=== PATIENT | female | born 1995 | race Caucasian/White ===

== ENCOUNTER 2017-02-17 23:00 | Emergency (ER) | payer OTHER ==
[~2017-02-17] VITALS: Ht 165.1 cm; Wt 76.0 kg
[2017-02-17 23:06] VITALS: BP 109/70; PULSE 91; RESP 16; TEMP 98.1; O2SAT 100
--- NOTE | 2017-02-17 23:36 | PD ---
HPI Chief Complaint: pelvic pain, low back pain Time Seen by Provider: 23:15 Travel History International Travel<30 days: No Contact w/Intl Traveler<30days: No Traveled to known affect area: No History of Present Illness HPI The patient is a 21-year-old female, G0 who complains of bilateral pelvic pain for 3 days. She states she has a foul-smelling discharge. She denies any fever but does have some nausea. She states she has not missed her menstrual period. She denies any vomiting or diarrhea. She also complains of low back pain for 7 days. She states for several months she has had back pain up and down the back but the low back is only been hurting for 3 days. She denies any numbness, weakness or radiation of pain. She denies any bladder or bowel dysfunction. [facility] Social History Tobacco Use: No Allergies-Medications (Allergen,Severity, Reaction): Coded Allergies: No Known Allergies (Unverified , 02/17/17) Reported Meds & Prescriptions Reported Meds & Active Scripts Active Flexeril (Cyclobenzaprine HCl) 10 Mg Tab 10 Mg PO TID Ibuprofen 600 Mg Tab 600 Mg PO TID Phenergan (Promethazine HCl) 25 Mg Tablet 25 Mg PO Q6H PRN Review of Systems Except as stated in HPI: all other systems reviewed are Neg Physical Exam Narrative GENERAL: The patient is alert, oriented 3 and slight apparent distress with her low back pain and her pelvic pain. Her vital signs show heart rate of 91 but are otherwise normal. SKIN: Focused skin assessment warm/dry. HEAD: Atraumatic. Normocephalic. EYES: Pupils equal and round. No scleral icterus. No injection or drainage. ENT: No nasal bleeding or discharge. Mucous membranes pink and moist. NECK: Trachea midline. No JVD. CARDIOVASCULAR: Regular rate and rhythm. No murmur appreciated. RESPIRATORY: No accessory muscle use. Clear to auscultation. Breath sounds equal bilaterally. GASTROINTESTINAL: Abdomen soft, with minimal tenderness to direct palpation in the bilateral suprapubic area, nondistended. Hepatic and splenic margins not palpable. No guarding or rebound is present. MUSCULOSKELETAL: No obvious deformities. No clubbing. No cyanosis. No edema. There is tenderness in the lower lumbar and upper sacral area along the muscle groups bilaterally. Straight leg raising is normal and deep tendon reflexes are +1 bilaterally both patella Achilles. Pinprick is normal bilaterally. NEUROLOGICAL: Awake and alert. No obvious cranial nerve deficits. Motor grossly within normal limits. Normal speech. PSYCHIATRIC: Appropriate mood and affect; insight and judgment normal. Data Data Last Documented VS Vital Signs Date Time Temp Pulse Resp B/P Pulse Ox O2 Delivery O2 Flow Rate FiO2 02/18/17 01:04 16 02/17/17 23:50 77 117/65 98 Room Air 02/17/17 23:06 98.1 Orders Beta Hcg (Quant/Titer) (02/17/17 23:26) Complete Blood Count With Diff (02/17/17 23:26) Basic Metabolic Panel (Bmp) (02/17/17 23:26) Gc And Chlamydia Pcr (02/17/17 23:26) Wet Prep Profile (02/17/17 23:26) Urinalysis - C+S If Indicated (02/17/17 23:26) Ketorolac Inj (Toradol Inj) (02/18/17 00:00) Ceftriaxone Inj (Rocephin Inj) (02/18/17 01:30) Azithromycin Powd Pack (Zithromax Powd P (02/18/17 01:30) Labs Laboratory Tests Test 02/17/17 02/17/17 23:00 23:30 Urine Color YELLOW Urine Turbidity CLEAR Urine pH 5.5 Urine Specific [place] 1.013 Urine Protein NEG mg/dL Urine Glucose (UA) NEG mg/dL Urine Ketones NEG mg/dL Urine Occult Blood NEG Urine Nitrite NEG Urine Bilirubin NEG Urine Leukocyte Esterase TRACE Urine RBC 0-3 /hpf Urine WBC 0-2 /hpf Urine Squamous Epithelial 0-5 /hpf Cells Urine Bacteria OCC /hpf Urine Mucus OCC /lpf Microscopic Urinalysis Comment CULT NOT INDICATED White Blood Count 14.0 TH/MM3 Red Blood Count 4.02 MIL/MM3 Hemoglobin 12.6 GM/DL Hematocrit 36.7 % Mean Corpuscular Volume 91.3 FL Mean Corpuscular Hemoglobin 31.4 PG Mean Corpuscular Hemoglobin 34.4 % Concent Red Cell Distribution Width 12.9 % Platelet Count 233 TH/MM3 Mean Platelet Volume 7.6 FL Neutrophils (%) (Auto) 71.8 % Lymphocytes (%) (Auto) 16.8 % Monocytes (%) (Auto) 9.9 % Eosinophils (%) (Auto) 1.0 % Basophils (%) (Auto) 0.5 % Neutrophils # (Auto) 10.0 TH/MM3 Lymphocytes # (Auto) 2.4 TH/MM3 Monocytes # (Auto) 1.4 TH/MM3 Eosinophils # (Auto) 0.1 TH/MM3 Basophils # (Auto) 0.1 TH/MM3 CBC Comment DIFF FINAL Differential Comment Clue Cells (Wet Prep) NONE SEEN Vaginal Trichomonas (Wet Prep) NONE SEEN Vaginal Yeast (Wet Prep) NONE SEEN Sodium Level 139 MEQ/L Potassium Level 3.6 MEQ/L Chloride Level 104 MEQ/L Carbon Dioxide Level 24.2 MEQ/L Anion Gap 11 MEQ/L Blood Urea Nitrogen 9 MG/DL Creatinine 0.50 MG/DL Estimat Glomerular Filtration 156 ML/MIN Rate Random Glucose 88 MG/DL Calcium Level 8.7 MG/DL Human Chorionic Gonadotropin, 1 MIU/ML Quant MDM Medical Decision Making Medical Screen Exam Complete: Yes Emergency Medical Condition: Yes Medical Record Reviewed: Yes Interpretation(s) The CBC shows a white count of 14,000 with 72% neutrophils. The CBC is otherwise unremarkable. The basic metabolic profile is normal. The beta-hCG is 1. The urinalysis shows trace leukocyte Estrace and occasional bacteria but is otherwise normal and culture is not indicated. The wet prep is negative for clue cells, Trichomonas and yeast. Differential Diagnosis PID, bacterial vaginosis, Trichomonas vaginitis, yeast vaginitis, dehydration, electrolyte disorder, low back painacute lumbosacral strain Narrative Course The patient likely has PID. She has exquisite cervical tenderness. She also has low back painacute lumbosacral strain. Plan: The patient be given Flexeril, Motrin for the back pain and a 5 day work excuse. She will get Rocephin/Zithromax for the PID. Diagnosis Primary Impression: PID (acute pelvic inflammatory disease) Additional Impression: Acute myofascial strain of lumbosacral region Additional Instructions: As we discussed, you will get a 5 day work excuse. The Flexeril can make you sleepy so do not drink alcohol or drive on this medication. The Motrin is regularly taken, 1 tablet 3 times daily. Phenergan is for nausea and this is one every 6 hours as needed. Follow-up this week with her primary care physician. Med/Other Pt SpecificInfo: Prescription(s) given Scripts Cyclobenzaprine (Flexeril)10 Mg Tab10 Mg PO TID #30 TAB Ref 0 Prov:Dc Loyd MD 02/18/17 Ibuprofen 600 Mg [id number] Mg PO TID #44 TAB Ref 0 Prov:Dc Loyd MD 02/18/17 Promethazine (Phenergan)25 Mg [id number] Mg PO Q6H PRN (NAUSEA OR VOMITING) #30 TAB Ref 0 Prov:Dc Loyd MD 02/18/17 Disposition: 01 DISCHARGE HOME Condition: Stable Dc Loyd MD Feb 17, 2017 23:36
[2017-02-17 23:50] VITALS: BP 117/65; PULSE 77; RESP 16; O2SAT 98
[2017-02-17 23:54] LABS: BASOPHIL # 0.1 TH/MM3 (0-0.2); BASOPHIL % 0.5 % (0.0-2.0); EOSINOPHIL # 0.1 TH/MM3 (0-0.4); HEMATOCRIT 36.7 % (35.0-46.0); HEMO FLAGS DIFF FINAL; LYMPH % 16.8 % (9.0-44.0); LYMPHOCYTE # 2.4 TH/MM3 (1.0-4.8); MEAN CELL VOLUME 91.3 FL (80.0-100.0); MEAN CORPUSCULAR HEMOGLOBIN 31.4 PG (27.0-34.0); MEAN CORPUSCULAR HGB CONC 34.4 % (32.0-36.0); MONO % 9.9 % (0.0-8.0); NEUT % 71.8 % (16.0-70.0); PLATELET COUNT 233 TH/MM3 (150-450); RED BLOOD COUNT 4.02 MIL/MM3 (4.00-5.30); RED CELL DISTRIBUTION WIDTH 12.9 % (11.6-17.2)
[2017-02-18] MEDS ORDERED: KETOROLAC TROMETHAMINE 60 MG/2 ML (IM) VIAL IVP ONE
[2017-02-18 00:03] LABS: BLOOD, URINE NEG (NEG); GLUCOSE,URINE NEG (NEG); KETONE, URINE NEG (NEG); NITRITE,URINE NEG (NEG); PH, URINE 5.5 (5.0-8.5)
[2017-02-18 00:04] LABS: POTASSIUM 3.6 MEQ/L (3.5-5.1)
[2017-02-18 00:13] LABS: URINE COLOR YELLOW (YELLW/STRAW)
[2017-02-18 00:14] LABS: MUCUS URINE OCC /lpf (OCC); SQUAMOUS EPITHELIAL CELL URINE 0-5 /hpf (0-5)
[2017-02-18 00:15] LABS: BACTERIA, URINE OCC /hpf; COMMENT (UR) CULT NOT INDICATED; CULTURE IF INDICATED CULT NOT INDICATED; RBC, URINE 0-3 /hpf (0-3); WBC, URINE 0-2 /hpf (0-5)
[2017-02-18 00:38] LABS: BICARBONATE 24.2 MEQ/L (21.0-32.0)
[2017-02-18 01:04] VITALS: RESP 16
[2017-02-18] MEDS ORDERED: IBUP-232 PO (01:28)
[2017-02-18] MEDS ORDERED: CYCL1TAB29 PO (01:28)
[2017-02-18] MEDS ORDERED: PROM25TA10 PO (01:28)
[2017-02-18] MEDS ORDERED: AZITHROMYCIN PWD FOR SUSP 1 GM PACKET PO ONE (01:30)
[2017-02-18] MEDS ORDERED: cefTRIAXone INJ 1,000 MG in SODIUM CHLORIDE 0.9% INJ 100 ML IV ONE (01:30)
[2017-02-18 02:10] LABS: CHLAMYDIA PCR NOT DETECTED (NOT DETECT); NEISSERIA PCR NOT DETECTED (NOT DETECT)
[2017-02-18 02:25] VITALS: BP 119/64
[2017-02-18] MEDS ORDERED: DOXY100C PO (21:17)
== END 2017-02-18 02:30 | disposition home or self-care (01) ==
LOC: PHED 23:00
DX: N73.0 Acute parametritis and pelvic cellulitis (principal); S39.012A Strain of muscle, fascia and tendon of lower back, initial encounter; X58.XXXA Exposure to other specified factors, initial encounter
CPT/HCPCS: 80048; 81001; 84702; 85025; 87210; 87491; 87591; 96365; 96375; 99284; J0696; J1885

== ENCOUNTER 2017-02-18 17:38 | Emergency (ER) | payer OTHER ==
[~2017-02-18] VITALS: Ht 165.1 cm; Wt 77.0 kg
[2017-02-18] VITALS (8 sets, daily range): BP systolic 101–118; BP diastolic 58–90; PULSE 74–111; RESP 16–24; TEMP 98.2–99.1; O2SAT 98–100
[~2017-02-18 17:38] MED LIST: CYCL1TAB29 PO; IBUP-232 PO; PROM25TA10 PO
[2017-02-18] MEDS ORDERED: MORPHINE SULFATE 4 MG/ML INJ IV PUSH ONE (18:00)
[2017-02-18] MEDS ORDERED: ONDANSETRON HCL 4 MG/2 ML VIAL IVP ONE (18:00)
[2017-02-18] MEDS ORDERED: SODIUM CHLORIDE 0.9% FLUSH 10 ML FLUSH IV FLUSH PRN (18:00)
--- NOTE | 2017-02-18 18:11 | PD ---
HPI Chief Complaint: Abdominal Pain Time Seen by Provider: 18:00 Travel History International Travel<30 days: No Contact w/Intl Traveler<30days: No Traveled to known affect area: No History of Present Illness HPI This is a 21-year-old female presents emergency Department with evaluation of vaginal bleeding and suprapubic abdominal pain for the past 4 days. Patient was evaluated yesterday here diagnosed with PID and discharged after she received multiple medicines here. Patient states she did not fill her medications until this afternoon. She states the pain is been constant and severe ever since leaving the emergency department. She denies any dysuria diarrhea constipation or blood in the stool. She denies any nausea or vomiting. States her pain is severe and constant. PFSH Past Medical History Tetanus Vaccination: > 5 Years Influenza Vaccination: No ?: Not Past Surgical History Cholecystectomy: Yes Social History Alcohol Use: Yes (occ) Tobacco Use: No Substance Use: No Allergies-Medications (Allergen,Severity, Reaction): Coded Allergies: No Known Allergies (Unverified , 02/18/17) Reported Meds & Prescriptions Reported Meds & Active Scripts Active Flexeril (Cyclobenzaprine HCl) 10 Mg Tab 10 Mg PO TID Ibuprofen 600 Mg Tab 600 Mg PO TID Phenergan (Promethazine HCl) 25 Mg Tablet 25 Mg PO Q6H PRN Review of Systems Except as stated in HPI: all other systems reviewed are Neg Physical Exam Narrative GENERAL: Well-developed, well-nourished, appears quite uncomfortable. SKIN: Focused skin assessment warm/dry. HEAD: Atraumatic. Normocephalic. EYES: Pupils equal and round. No scleral icterus. No injection or drainage. ENT: No nasal bleeding or discharge. Mucous membranes pink and moist. NECK: Trachea midline. No JVD. CARDIOVASCULAR: Regular rate and rhythm. No murmur appreciated. RESPIRATORY: No accessory muscle use. Clear to auscultation. Breath sounds equal bilaterally. GASTROINTESTINAL: Abdomen soft, non-tender, nondistended. Hepatic and splenic margins not palpable. No rebound no percussive tenderness. MUSCULOSKELETAL: No obvious deformities. No clubbing. No cyanosis. No edema. NEUROLOGICAL: Awake and alert. No obvious cranial nerve deficits. Motor grossly within normal limits. Normal speech. PSYCHIATRIC: Appropriate mood and affect; insight and judgment normal. Data Data Last Documented VS Vital Signs Date Time Temp Pulse Resp B/P Pulse Ox O2 Delivery O2 Flow Rate FiO2 02/18/17 19:23 18 02/18/17 19:00 99.1 90 113/68 98 Room Air Orders Ed Urine Pregnancytest Poc (02/18/17 18:01) Urinalysis - C+S If Indicated (02/18/17 18:01) Basic Metabolic Panel (Bmp) (02/18/17 18:00) Complete Blood Count With Diff (02/18/17 18:00) Ct Abd/Pel W Iv Contrast(Rout) (02/18/17 18:00) Iv Access Insert/Monitor (02/18/17 18:00) Ecg Monitoring (02/18/17 18:00) Oximetry (02/18/17 18:00) Us Pelvis Comp Sales Manager [place]/Non-Preg (02/18/17 ) Morphine Inj (Morphine Inj) (02/18/17 18:00) Ondansetron Inj (Zofran Inj) (02/18/17 18:00) Sodium Chloride 0.9% Flush (Ns Flush) (02/18/17 18:00) Iohexol 350 Inj (Omnipaque 350 Inj) (02/18/17 18:31) Hydromorphone Pf Inj (Dilaudid Pf Inj) (02/18/17 18:45) Urine Culture (02/18/17 18:10) Sodium Chlor 0.9% 1000 Ml Inj (Ns 1000 M (02/18/17 19:30) Ketorolac Inj (Toradol Inj) (02/18/17 20:15) Potassium Chloride (Kcl) (02/18/17 20:15) Labs Laboratory Tests Test 02/18/17 18:10 White Blood Count 13.7 TH/MM3 Red Blood Count 4.10 MIL/MM3 Hemoglobin 12.8 GM/DL Hematocrit 37.6 % Mean Corpuscular Volume 91.7 FL Mean Corpuscular Hemoglobin 31.1 PG Mean Corpuscular Hemoglobin 34.0 % Concent Red Cell Distribution Width 13.2 % Platelet Count 253 TH/MM3 Mean Platelet Volume 8.1 FL Neutrophils (%) (Auto) 70.0 % Lymphocytes (%) (Auto) 18.3 % Monocytes (%) (Auto) 9.7 % Eosinophils (%) (Auto) 1.5 % Basophils (%) (Auto) 0.5 % Neutrophils # (Auto) 9.6 TH/MM3 Lymphocytes # (Auto) 2.5 TH/MM3 Monocytes # (Auto) 1.3 TH/MM3 Eosinophils # (Auto) 0.2 TH/MM3 Basophils # (Auto) 0.1 TH/MM3 CBC Comment DIFF FINAL Differential Comment Urine Color PINK Urine Turbidity CLOUDY Urine pH 6.5 Urine Specific [place] 1.009 Urine Protein NEG mg/dL Urine Glucose (UA) NEG mg/dL Urine Ketones NEG mg/dL Urine Occult Blood LARGE Urine Nitrite NEG Urine Bilirubin NEG Urine Leukocyte Esterase SMALL Urine RBC INNUM /hpf Urine WBC 25-49 /hpf Urine WBC Clumps FEW Urine Squamous Epithelial 0-5 /hpf Cells Microscopic Urinalysis Comment CULTURE INDICATED Sodium Level 141 MEQ/L Potassium Level 3.4 MEQ/L Chloride Level 107 MEQ/L Carbon Dioxide Level 26.2 MEQ/L Anion Gap 8 MEQ/L Blood Urea Nitrogen 11 MG/DL Creatinine 0.73 MG/DL Estimat Glomerular Filtration 101 ML/MIN Rate Random Glucose 84 MG/DL Calcium Level 8.8 MG/DL [facility] Medical Decision Making Medical Screen Exam Complete: Yes Emergency Medical Condition: Yes Differential Diagnosis PID, ovarian torsion, appendicitis, colitis, abdominal pain. Narrative Course Patient was roomed in emergency department, given morphine and Zofran on arrival , this did not significantly relieve the patient's discomfort. Milligram of Dilaudid was added. Patient's labs and workup was reviewed from yesterday, patient had a pelvic exam which was not well documented but a wet prep and GC and CT were negative. Patient appears quite uncomfortable was able to ambulates to and from the bathroom without any problem. Think at this point given her level of discomfort a CT exam is warranted as well as an ultrasound of her pelvis to rule out surgical pathology. The patient was discussed with Dr. Farmer at 1900 shift change to follow-up with the workup and disposition the patient properly. Adrián Burns MD Feb 18, 2017 18:10
[2017-02-18] MEDS ORDERED: IOHEXOL 350 MG/ML 10 ML VIAL (for RAD DIAG) IV ONE (18:31)
[2017-02-18 18:32] LABS: AUTOMATED NEUTROPHIL # 9.6 TH/MM3 (1.8-7.7); BASOPHIL # 0.1 TH/MM3 (0-0.2); BASOPHIL % 0.5 % (0.0-2.0); EOSINOPHIL # 0.2 TH/MM3 (0-0.4); EOSINOPHIL % 1.5 % (0.0-4.0); HEMATOCRIT 37.6 % (35.0-46.0); HEMO FLAGS DIFF FINAL; LYMPH % 18.3 % (9.0-44.0); LYMPHOCYTE # 2.5 TH/MM3 (1.0-4.8); MEAN CELL VOLUME 91.7 FL (80.0-100.0); MEAN CORPUSCULAR HEMOGLOBIN 31.1 PG (27.0-34.0); MONO % 9.7 % (0.0-8.0); PLATELET COUNT 253 TH/MM3 (150-450); RED CELL DISTRIBUTION WIDTH 13.2 % (11.6-17.2); WHITE BLOOD COUNT 13.7 TH/MM3 (4.0-11.0)
[2017-02-18 18:41] LABS: POTASSIUM 3.4 MEQ/L (3.5-5.1)
[2017-02-18 18:44] LABS: BICARBONATE 26.2 MEQ/L (21.0-32.0)
--- NOTE | 2017-02-18 18:44 | RADRPT ---
EXAM DATE/TIME: 02/18/2017 18:18 [facility] COMPARISON: No previous studies available for comparison. INDICATIONS : Diffuse abdominal pain and vaginal bleeding. IV CONTRAST: 90 cc Omnipaque 350 (iohexol) IV ORAL CONTRAST: No oral contrast ingested. RADIATION DOSE: 13.50 CTDIvol (mGy) MEDICAL HISTORY : None SURGICAL HISTORY : Cholecystectomy. ENCOUNTER: Initial ACUITY: 2 days PAIN SCALE: 8/10 LOCATION: abdomen/pelvis TECHNIQUE: Volumetric scanning of the abdomen and pelvis was performed. Using automated exposure control and ad justment of the mA and/or kV according to patient size, radiation dose was kept as low as reasonably achievable to obtain optimal diagnostic quality images. DICOM format image data is available electro nically for review and comparison. FINDINGS: LOWER LUNGS: The visualized lower lungs are clear. LIVER: Homogeneous density without lesion. There is no dilation of the biliary tree. Status post cholecyste ctomy. SPLEEN: Normal size without lesion. PANCREAS: Within normal limits. KIDNEYS: Normal in size and shape. There is no mass, stone or hydronephrosis. ADRENAL GLANDS: Within normal limits. VASCULAR: There is no aortic aneurysm. BOWEL/MESENTERY: The stomach, small bowel, and colon demonstrate no acute abnormality. There is no free intraperitone al air or fluid. ABDOMINAL WALL: Within normal limits. RETROPERITONEUM: There is no lymphadenopathy. BLADDER: No wall thickening or mass. REPRODUCTIVE: There is a complex cystic mass in the right adnexa measuring up to approximately 2.4 x 3.8 cm. The en dometrium is prominent. There is a smaller cystic structure in the left adnexa measuring up to approx imately 0.8 cm. There is a small amount of free fluid in the cul-de-sac. INGUINAL: There is no lymphadenopathy or hernia. MUSCULOSKELETAL: Within normal limits for patient age. CONCLUSION: 1. Complex cystic mass in the right adnexa likely representing a complex cyst. 2. Smaller cystic structure left adnexa most consistent with an ovarian cyst. 3. Prominent endometrium. There is a small amount of free fluid in the cul-de-sac. Status post cholec ystectomy. Hay Alanis MD on February 18, 2017 at 18:39 Board Certified Radiologist. This report was verified electronically.
[2017-02-18] MEDS ORDERED: HYDROmorphone HCL PF 1 MG/ML VIAL IV PUSH ONE (18:45)
[2017-02-18 18:48] LABS: BLOOD, URINE LARGE (NEG); GLUCOSE,URINE NEG (NEG); KETONE, URINE NEG (NEG); NITRITE,URINE NEG (NEG); PH, URINE 6.5 (5.0-8.5)
[2017-02-18 18:56] LABS: URINE COLOR PINK (YELLW/STRAW)
[2017-02-18 18:57] LABS: COMMENT (UR) CULTURE INDICATED; CULTURE IF INDICATED CULTURE INDICATED; RBC, URINE INNUM /hpf (0-3); SQUAMOUS EPITHELIAL CELL URINE 0-5 /hpf (0-5)
--- NOTE | 2017-02-18 19:27 | PD ---
Physical Exam Date Seen by Provider: Feb 18, 2017 Time Seen by Provider: 19:26 Narrative Accepted in transfer of care from Dr. Burns GENERAL: Well-developed well-nourished female appears mildly ill with no respiratory distress holding her lower abdomen. SKIN: Warm and dry. CARDIOVASCULAR: Regular rate and rhythm without murmurs, gallops, or rubs. RESPIRATORY: Breath sounds equal bilaterally. No accessory muscle use. GASTROINTESTINAL: Abdomen soft, bilateral lower quadrant and suprapubic tenderness to palpation with voluntary guarding no rebound, nondistended. Pelvic exam: Normal external exam no redness induration or lesions; speculum exam small amount of blood no clots cervical os closed no tissue no purulent discharge; bimanual exam no cervical motion tenderness mild right vaginal vault tenderness no adnexal mass or tenderness no left adnexal mass or tenderness; no uterine enlargement. Data Data Last Documented VS Vital Signs Date Time Temp Pulse Resp B/P Pulse Ox O2 Delivery O2 Flow Rate FiO2 02/18/17 21:00 98.2 85 18 107/75 100 Room Air Orders Ed Urine Pregnancytest Poc (02/18/17 18:01) Urinalysis - C+S If Indicated (02/18/17 18:01) Basic Metabolic Panel (Bmp) (02/18/17 18:00) Complete Blood Count With Diff (02/18/17 18:00) Ct Abd/Pel W Iv Contrast(Rout) (02/18/17 18:00) Iv Access Insert/Monitor (02/18/17 18:00) Ecg Monitoring (02/18/17 18:00) Oximetry (02/18/17 18:00) Us Pelvis Comp W[place]/Non-Preg (02/18/17 ) Morphine Inj (Morphine Inj) (02/18/17 18:00) Ondansetron Inj (Zofran Inj) (02/18/17 18:00) Sodium Chloride 0.9% Flush (Ns Flush) (02/18/17 18:00) Iohexol 350 Inj (Omnipaque 350 Inj) (02/18/17 18:31) Hydromorphone Pf Inj (Dilaudid Pf Inj) (02/18/17 18:45) Urine Culture (02/18/17 18:10) Sodium Chlor 0.9% 1000 Ml Inj (Ns 1000 M (02/18/17 19:30) Ketorolac Inj (Toradol Inj) (02/18/17 20:15) Potassium Chloride (Kcl) (02/18/17 20:15) Labs Laboratory Tests Test 02/18/17 18:10 White Blood Count 13.7 TH/MM3 Red Blood Count 4.10 MIL/MM3 Hemoglobin 12.8 GM/DL Hematocrit 37.6 % Mean Corpuscular Volume 91.7 FL Mean Corpuscular Hemoglobin 31.1 PG Mean Corpuscular Hemoglobin 34.0 % Concent Red Cell Distribution Width 13.2 % Platelet Count 253 TH/MM3 Mean Platelet Volume 8.1 FL Neutrophils (%) (Auto) 70.0 % Lymphocytes (%) (Auto) 18.3 % Monocytes (%) (Auto) 9.7 % Eosinophils (%) (Auto) 1.5 % Basophils (%) (Auto) 0.5 % Neutrophils # (Auto) 9.6 TH/MM3 Lymphocytes # (Auto) 2.5 TH/MM3 Monocytes # (Auto) 1.3 TH/MM3 Eosinophils # (Auto) 0.2 TH/MM3 Basophils # (Auto) 0.1 TH/MM3 CBC Comment DIFF FINAL Differential Comment Urine Color PINK Urine Turbidity CLOUDY Urine pH 6.5 Urine Specific [place] 1.009 Urine Protein NEG mg/dL Urine Glucose (UA) NEG mg/dL Urine Ketones NEG mg/dL Urine Occult Blood LARGE Urine Nitrite NEG Urine Bilirubin NEG Urine Leukocyte Esterase SMALL Urine RBC INNUM /hpf Urine WBC 25-49 /hpf Urine WBC Clumps FEW Urine Squamous Epithelial 0-5 /hpf Cells Microscopic Urinalysis Comment CULTURE INDICATED Sodium Level 141 MEQ/L Potassium Level 3.4 MEQ/L Chloride Level 107 MEQ/L Carbon Dioxide Level 26.2 MEQ/L Anion Gap 8 MEQ/L Blood Urea Nitrogen 11 MG/DL Creatinine 0.73 MG/DL Estimat Glomerular Filtration 101 ML/MIN Rate Random Glucose 84 MG/DL Calcium Level 8.8 MG/DL [facility] Medical Record Reviewed: Yes Supervised Visit with CELSA: No Interpretation(s) POC HCG: negative UA: blood, leuk esterase wbc's bacteria rbc's; cx indicated Last Impressions Abdomen/Pelvis CT 02/18/17 1800 Signed Impressions: Service Date/Time: Saturday, February 18, 2017 18:18 - CONCLUSION: 1. Complex cystic mass in the right adnexa likely representing a complex cyst. 2. Smaller cystic structure left adnexa most consistent with an ovarian cyst. 3. Prominent endometrium. There is a small amount of free fluid in the cul-de-sac. Status post cholecystectomy. Hay Alanis MD Pelvis Ultrasound 02/18/17 0000 Signed Impressions: Service Date/Time: Saturday, February 18, 2017 19:27 - CONCLUSION: 1. Endometrium is mildly prominent with no mass or fluid. 2. Small amount of fluid in the cul-de-sac. 3. Ovaries appear unremarkable. Hay Alanis MD CBC & BMP Diagram 02/18/17 18:10 Vital Signs Date Time Temp Pulse Resp B/P Pulse Ox O2 Delivery O2 Flow Rate FiO2 02/18/17 21:00 98.2 85 18 107/75 100 Room Air 02/18/17 20:00 90 18 101/58 100 Room Air 02/18/17 19:23 18 02/18/17 19:00 99.1 90 18 113/68 98 Room Air 02/18/17 18:20 98 Room Air 02/18/17 18:00 98.4 74 24 118/90 100 Room Air 02/18/17 17:45 98.4 111 22 118/90 100 Differential Diagnosis Accepted in transfer of care from Dr. Burns; please refer to his dictation Narrative Course Accepted in transfer of care from Dr. Burns; follow-up of pending imaging and patient disposition At 8:05 PM ultrasound imaging study discussed with reading radiologist Dr. Alanis, who indicates the US is consistent normal flow to both ovaries, no indication for torsion, also fluid about the right ovary is consistent with ruptured cyst with only small amount of fluid in the cul-de-sac. No other acute findings noted. At 9:18 PM patient is clinically improved; patient, with family at bedside, is aware of imaging results lab results; patient appears this time stable for outpatient management. Patient is to fill and take the prescription medications provided by previous treating physician and reports these prescriptions are at the pharmacy waiting to be picked up by the patient. Diagnosis Primary Impression: Ruptured ovarian cyst Additional Impression: PID (pelvic inflammatory disease) Referrals: Extrusion Press Operator 2 days Patient Instructions: Narcotic given in the ED, General Instructions Departure Forms: Tests/Procedures, Work Release Special Instructions: no work x 1 day Additional Instruction: Follow-up with customer advocate Increase fluid hydration No work times one day Take medication as prescribed as needed for pain associated with inflammation Return to the emergency for for pain fever vomiting or any concerns Complete course of antibiotic as prescribed Take acetaminophen/Tylenol every 4 hours as needed for fever 100.4 Fahrenheit or greater Med/Other Pt SpecificInfo: Prescription(s) given Scripts Doxycycline Hyclate 100 Mg [id number] Mg PO BID #14 CAP Ref 0 Prov:Summer Farmer MD 02/18/17 Summer Farmer MD Feb 18, 2017 19:27
[2017-02-18] MEDS ORDERED: SODIUM CHLOR 0.9% 1000 ML INJ 1,000 ML IV ONE (19:30)
--- NOTE | 2017-02-18 19:54 | RADRPT ---
EXAM DATE/TIME: 02/18/2017 19:27 [facility] COMPARISON: No previous studies available for comparison. INDICATIONS : Pelvic pain. MEDICAL HISTORY : Pelvic pain. SURGICAL HISTORY : Cholecystectomy. ENCOUNTER: Initial ACUITY: 4-6 days PAIN SCORE: 8/10 LOCATION: Bilateral pelvis MEASUREMENTS: UTERUS: 9.7 x 5.3 x 5.0 cm ENDOMETRIAL STRIPE: 10 mm RIGHT OVARY: 3.9 x 2.6 x 2.2 cm LEFT OVARY: 2.2 x 3.0 x 1.6 cm FINDINGS: UTERUS: The myometrium has homogeneous echotexture without mass. The endometrium is mildly prominent measurin g 10 mm. RIGHT OVARY: Ovary contains no mass or significant cystic lesion. LEFT OVARY: Ovary contains no mass or significant cystic lesion. MISCELLANEOUS: Is a small amount of fluid in the cul-de-sac. CONCLUSION: 1. Endometrium is mildly prominent with no mass or fluid. 2. Small amount of fluid in the cul-de-sac. 3. Ovaries appear unremarkable. Hay Alanis MD on February 18, 2017 at 19:51 Board Certified Radiologist. This report was verified electronically.
[2017-02-18] MEDS ORDERED: POTASSIUM CHLORIDE 20 MEQ CONTROLLED RELEASE TAB PO ONE (20:15)
[2017-02-18] MEDS ORDERED: KETOROLAC TROMETHAMINE 30 MG/ML (IVP) VIAL IV PUSH ONE (20:15)
[2017-02-18] MEDS ORDERED: DOXY100C PO (21:17)
== END 2017-02-18 22:06 | disposition home or self-care (01) ==
LOC: PHED 17:38
DX: N83.209 Unspecified ovarian cyst, unspecified side (principal); N73.9 Female pelvic inflammatory disease, unspecified
CPT/HCPCS: 74177; 76856; 80048; 81001; 84703; 85025; 87086; 96361; 96374; 96375; 99285; J1170; J1885; J2270; J2405; J7030; Q9967

== ENCOUNTER 2017-05-02 19:51 | Emergency (ER) | payer OTHER ==
[~2017-05-02] VITALS: Ht 165.1 cm; Wt 76.5 kg
[~2017-05-02 19:51] MED LIST changes: +DOXY100C PO
[2017-05-02 20:02] VITALS: BP 101/70; PULSE 91; RESP 16; TEMP 98.3; O2SAT 98
--- NOTE | 2017-05-02 21:20 | PD ---
HPI Chief Complaint: Pain: Acute or Chronic Time Seen by Provider: 20:45 Travel History International Travel<30 days: No Contact w/Intl Traveler<30days: No Traveled to known affect area: No History of Present Illness HPI [employer]: Vijaya [id number]; 21-year-old female presents to the emergency department for complaint of 3 days of left lower extremity pain and swelling. 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 Patient was reportedly on blood thinning agent 3 months that was discontinued and February or January 2016. Patient returned to the [facility] and here in [facility] imaging reportedly had an ultrasound performed that was negative for DVT. Patient has been on no blood thinning agents subsequently. Patient states in January 2017 had ruptured ovarian cyst confirmed by ultrasound and no procedural intervention and no other procedural intervention long distance travel protracted bedrest. Also had cholecystectomy 3-5 years ago. Patient denies any other medical history. Patient does not smoke cigarettes does not have history of control pill use and no family history of clotting disorder DVT or PE. Patient's last period was 2 weeks ago and normal for her. Patient's had no shortness of breath no chest pain or pleuritic chest pain and no hemoptysis. Patient feels well other than for the left lower extremity discomfort. Patient denies any known injury. Patient rates pain 7/10 in intensity. PFSH Past Medical History Narrative Medical DVT 2016; cholecystectomy, liposuction, ovarian cyst; no tobacco use; no family history of clotting disorder; nursing notes reviewed Cardiovascular Problems: Yes ("BLOOD CLOT TO L LEG 2015") Reproductive: Yes (RUPTURED OVARIAN CYST 02/09) ?: Not LMP: "2 WEEKS AGO" Past Surgical History Cholecystectomy: Yes Social History Alcohol Use: Yes ([facility]) Tobacco Use: No Substance Use: No Allergies-Medications (Allergen,Severity, Reaction): Coded Allergies: No Known Allergies (Unverified , 05/02/17) Reported Meds & Prescriptions Reported Meds & Active Scripts Active Doxycycline Hyclate 100 Mg Cap 100 Mg PO BID Flexeril (Cyclobenzaprine HCl) 10 Mg Tab 10 Mg PO TID Ibuprofen 600 Mg Tab 600 Mg PO TID Phenergan (Promethazine HCl) 25 Mg Tablet 25 Mg PO Q6H PRN Review of Systems Except as stated in HPI: all other systems reviewed are Neg Physical Exam Narrative GENERAL: Well-developed well-nourished female in no acute distress no respiratory distress SKIN: Warm and dry. HEAD: Normocephalic. EYES: No scleral icterus. No injection or drainage. NECK: Supple, trachea midline. No JVD or lymphadenopathy. CARDIOVASCULAR: Regular rate and rhythm without murmurs, gallops, or rubs. RESPIRATORY: Breath sounds equal bilaterally. No accessory muscle use. GASTROINTESTINAL: Abdomen soft, non-tender, nondistended. MUSCULOSKELETAL: No cyanosis, or edema. Bilateral lower extremity no asymmetry of leg circumference the posterior calf tenderness, no pallor no coolness no erythema no increased warmth no edema; bilateral radial and dorsalis pedis pulses 2+ to palpation BACK: Nontender without obvious deformity. No CVA tenderness. Data Data Last Documented VS Vital Signs Date Time Temp Pulse Resp B/P (MAP) Pulse Ox O2 Delivery O2 Flow Rate FiO2 05/02/17 20:02 98.3 91 16 101/70 (80) 98 Orders Orders Ed Urine Pregnancytest Poc (05/02/17 20:40) Us Leg Venous Doppler (05/02/17 ) [facility] Medical Decision Making Medical Screen Exam Complete: Yes Emergency Medical Condition: Yes Medical Record Reviewed: Yes Interpretation(s) POC hcg: negative Last Impressions Lower Extremity Ultrasound 05/02/17 0000 Signed Impressions: Service Date/Time: April 21:56 - CONCLUSION: Negative exam. No sonographic or Doppler findings of deep venous thrombosis. Gianni Dixon MD Vital Signs Date Time Temp Pulse Resp B/P (MAP) Pulse Ox O2 Delivery O2 Flow Rate FiO2 05/02/17 20:02 98.3 91 16 101/70 (80) 98 US LLE: FINDINGS: There is normal compressibility of the deep venous system from the inguinal region to the proximal calf. No echogenic clot is seen in the lumen of the common femoral, femoral, popliteal, and posterior tibial veins. There is a normal response of the venous system to proximal and distal augmentation and respiration. CONCLUSION: Negative exam. No sonographic or Doppler findings of deep venous thrombosis. Gianni Dixon MD on May 02, 2017 at 22:23 Board Certified Radiologist. This report was verified electronically. Differential Diagnosis DVT, gastrocnemius strain, Achilles tendon injury Narrative Course US ordered Ultrasound is negative for DVT status was used to convey information to the patient through echo vasc tech Senthil [id number] patient acknowledges understanding of discharge diagnosis and discharge instructions and is stable for outpatient management. Diagnosis Primary Impression: Muscle strain of left lower leg Qualified Codes: S86.912A - Strain of unspecified muscle(s) and tendon(s) at lower leg level, left leg, initial encounter Referrals: Primary Care Physician call for appointment Patient Instructions: General Instructions Additional Instructions: Take ibuprofen 800 mg as often as every 8 hours as needed for pain associated with inflammation May use ice intermittently for first 12-24 hours then moist heat for comfort Practice flexing and extending the foot at the ankle level to keep lower extremity active Return to the emergency department for any concerns or change in condition Med/Other Pt SpecificInfo: No Meds Exist/No RX given Disposition: 01 DISCHARGE HOME Condition: Stable Summer Farmer MD May 02, 2017 21:20
--- NOTE | 2017-05-02 22:24 | RADRPT ---
EXAM DATE/TIME: 05/02/2017 21:56 [facility] COMPARISON: No previous studies available for comparison. INDICATIONS : Left leg pain. MEDICAL HISTORY : Deep venous thrombosis. Left pain. Ovarian cysts. SURGICAL HISTORY : Cholecystectomy. ENCOUNTER: Initial ACUITY: 3 days PAIN SCORE: 3/10 LOCATION: Left leg. TECHNIQUE: Venous ultrasound of the leg was performed from the inguinal ligament to the proximal calf. Real-danielito e, color Doppler and spectral tracing, compression and augmentation techniques were used. FINDINGS: There is normal compressibility of the deep venous system from the inguinal region to the proximal ca lf. No echogenic clot is seen in the lumen of the common femoral, femoral, popliteal, and posterior tibial veins. There is a normal response of the venous system to proximal and distal augmentation an d respiration. CONCLUSION: Negative exam. No sonographic or Doppler findings of deep venous thrombosis. Gianni Dixon MD on May 02, 2017 at 22:23 Board Certified Radiologist. This report was verified electronically.
[2017-05-02 22:52] VITALS: BP 128/77
== END 2017-05-02 22:54 | disposition home or self-care (01) ==
LOC: PHED 19:51
DX: S86.912A Strain of unspecified muscle(s) and tendon(s) at lower leg level, left leg, initial encounter (principal); Z86.718 Personal history of other venous thrombosis and embolism
CPT/HCPCS: 84703; 93971